=== PATIENT | female | born 1980 | race Caucasian/White ===

== ENCOUNTER 2024-06-07 20:23 | Emergency (ER) | payer BC, SELFPAY ==
--- NOTE | ~2024-06-07 | CT_ITS ---
CT of the Abdomen and Pelvis: Indication: Abdominal pain Technique: 2.5 mm axial scans were obtained through the abdomen and pelvis following intravenous adm inistration of 100 cc of Omnipaque 350. Dose reduction technique was used on this scan by utilizing a utomated exposure control and iterative reconstruction technique. The dose-length product (DLP) was 1 530.12 mGy-cm. Findings: Scans through the lung bases are unremarkable. There is diffuse hepatic steatosis. Cholecystectomy clips are present. The spleen, pancreas, adrenals and kidneys are within normal limits. No evidence of aortic aneurysm. No lymphadenopathy. No bowel obstruction or bowel wall thickening. There is no evidence to suggest acute appendicitis. Images through the pelvis were performed. Urinary bladder unremarkable. No pelvic mass seen. No ascit es. Impression: No acute abnormalities seen. Diffuse hepatic steatosis. Reviewed, dictated and finalized at [facility]. TY HUNTER Impression: No acute abnormalities seen. Diffuse hepatic steatosis.
[2024-06-07 20:26] VITALS: BP 145/86; PULSE 87; RESP 18; TEMP 36.7; O2SAT 100
--- NOTE | 2024-06-07 20:28 | PC.NURSE ---
pt ambulated to bathroom for urine specimen
--- NOTE | 2024-06-07 20:29 | ED_ITS ---
HPI - Abdominal Pain General Chief Complaint: Abdominal Pain Stated Complaint: abdominal pain Time Seen by Provider: 06/07/24 20:28 Source: patient Mode of arrival: ambulatory Limitations: no limitations History of Present Illness HPI narrative: Patient is a 43-year-old female with mid epigastric abdominal pain for the past 5 days. She has a full sensation in the stomach area. MD elicited complaint: abdominal pain Pertinent past history: other ( CHF?) Onset (ago): day(s) (5) Pain Consistency: constant Location: epigastric Severity: moderate Pain scale (0-10): 6 Quality: cramping and stabbing Radiation: none Migration to: no migration Exacerbating factors: movement Relieving factors: movement Context: confirms sick contacts Associated symptoms: nausea and anorexia Related Data Home Medications ?Medication ?Instructions ?Recorded ?Confirmed ?Last Taken ?Type furosemide 20 mg tablet 20 mg PO DAILY 06/07/24 06/07/24 Unknown History lisinopril 2.5 mg tablet 2.5 mg PO DAILY 06/07/24 06/07/24 Unknown History metoprolol succinate 25 mg 25 mg PO DAILY 06/07/24 06/07/24 Unknown History tablet,extended release 24 hr Allergies Allergy/AdvReac Type Severity Reaction Status Date / Time morphine Allergy Severe Chest Pain Verified 06/07/24 22:11 ibuprofen Allergy Intermediate Dizziness Verified 06/07/24 22:11 azithromycin (From Klarity-A Allergy Unknown Verified 06/07/24 22:11 (azithro-chondr)(PF)) chondroitin sulfate A (From Allergy Unknown Verified 06/07/24 22:11 Klarity-A (azithro-chondr)(PF)) Review of Systems 2 Review of Systems: All systems reviewed & are unremarkable except as noted in HPI and below Constitutional: Constitutional: Reports no additional constitutional complaints Eyes: Eyes: Reports no additional eye complaints ENT: Reports system reviewed and no additional complaints, except as documented Cardiovascular: Cardiovascular: Reports no additional cardiovascular complaints Respiratory: Respiratory: Reports no additional respiratory complaints Gastrointestinal: Gastrointestinal: Reports no additional gastrointestinal complaints Genitourinary: Genitourinary: Reports no additional female genitourinary complaints Musculoskeletal: Musculoskeletal: Reports no additional musculoskeletal complaints Integumentary/Breasts: Skin/Breast: Reports system reviewed and no additional complaints, except as docu Neurologic: Reports system reviewed and no additional complaints, except as documented Psychiatric: Psychiatric: Reports no additional psychiatric complaints Endocrine: Endocrine: Reports no additional endocrine complaints Hematologic/Lymphatic: Hematologic/Lymphatic: Reports no additional hematologic/lymphatic complaints Allergic/Immunologic: Allergic/Immunologic: Reports no additional allergic/immunologic complaints Exam 2 Const: General: healthy appearing Nutritional Appearance: well nourished Orientation/consciousness: patient oriented x3 HENMT: Head: normal to inspection Ears: external ears normal F valarie/Nose/Sinus: Normal external nose present Eyes: Conjunctivae: conjunctivae normal Pupils: Equal, round and reactive pupils present EOM: EOMs intact bilaterally Neck: Neck: normal visual inspection Chest: Chest palpation & inspection: normal inspection of the chest Resp: Effort & Inspection: normal respiratory effort and not labored A uscultation: clear to auscultation bilaterally and no crackles Cardio: Rate: regular rate Rhythm: regular rhythm Heart sounds: no murmurs GI: Inspection: non-distended GI Palp: Yes Soft to palpation, Yes Tenderness to palpation present (GI) ( Epigastric), Yes Guarding due to palpation present (GI), No Rigid due to palpation, No Hernia present, No Palpable mass present and No Rebound tenderness present Auscultation: normal bowel sounds Other: hysterectomy and cholecystectomy completed : General: Yes bladder normal to palpation Back/Spine/Pelvis: Back: no CVA tenderness Skin: General skin exam: normal color Rashes: no rashes Wounds: no wounds Neuro: General: patient oriented x3 Cranial nerves: Yes Nystagmus not present Speech: normal speech Extrem: General: normal to inspection Psych: Mental Status: mental status grossly normal Affect: normal affect Attitude: cooperative Course Vital Signs Vital signs: Vital Signs Temperature 36.7 C 06/07/24 20:26 Pulse Rate 87 06/07/24 20:26 Respiratory Rate 18 06/07/24 20:26 Blood Pressure 145/86 H 06/07/24 20:26 Pulse Oximetry 100 06/07/24 20:26 Oxygen Delivery Room Air 06/07/24 20:26 Temperature 36.2 C L 06/08/24 02:00 Pulse Rate 60 06/08/24 02:00 Respiratory Rate 18 06/08/24 02:00 Blood Pressure 133/79 06/08/24 02:00 Pulse Oximetry 100 06/08/24 02:00 Oxygen Delivery Room Air 06/08/24 02:00 MDM - Abdominal Pain MDM Narrative Medical decision making narrative: patient is a 43-year-old female with epigastric pain for the past 5 days. We will do GI workup at this time. We will give her GI cocktail trial. Lab Data Attestation: I reviewed the patient's lab results. 06/07/24 22:45 06/07/24 22:45 Labs: Lab Results 06/07/24 06/07/24 06/07/24 Range/Units 20:29 21:02 22:45 WBC 9.5 (4.8-10.8) K/mm3 RBC 4.97 (4.20-5.40) M/mm3 Hgb 15.5 H (12.0-15.0) g/dL Hct 47.9 (35.0-49.0) % MCV 96.4 (78.0-102.0) fL MCH 31.2 H (27.0-31.0) pg MCHC 32.4 (32-36) g/dL RDW 13.0 (11.6-14.4) % Plt Count 189 (150-420) K/mm3 MPV 11.0 (9.2-11.8) fl Immature Gran % (Auto) 0.5 H (0.0-0.0) % Neut % (Auto) 57.7 (50.0-70.0) % Lymph % (Auto) 30.3 (18.0-42.0) % [place] % (Auto) 9.6 (2.0-11.0) % Eos % (Auto) 1.4 (1.0-6.0) % Baso % (Auto) 0.5 (0.0-1.0) % Lymph # (Auto) 2.88 (1.10-4.50) K/mm3 [place] # (Auto) 0.91 H (0.10-0.90) K/mm3 Eos # (Auto) 0.13 (0.02-0.50) K/mm3 Baso # (Auto) 0.05 (0.00-0.10) K/mm3 Abs Immat Gran (auto) 0.05 H (0.00-0.00) K/mm3 Absolute Neuts (auto) 5.50 (1.70-7.20) K/mm3 Absolute Nucleated RBC 0.00 (0.00-0.00) K/mm3 Nucleated RBC % 0.0 (0-0.0) % PT 10.3 (9.50-12.1) Seconds INR 0.9 APTT 27.2 (23.9-30.70) Sec Sodium 140 (136-145) mmol/L Potassium 4.0 (3.5-5.1) mmol/L Chloride 102 (98-108) mmol/L Carbon Dioxide 30 (21-32) mmol/L Anion Gap 8 (4-12) mmol/L BUN 8 (7-18) mg/dL Creatinine 0.63 (0.55-1.02) mg/dL Estim Creat Clear Calc 139 ml/min Estimated GFR > 60 (59 - ) Glucose 78 (70-99) mg/dL Calculated Osmolality 287 (285-295) mOsm/kg Lactic Acid 0.8 (0.4-2.0) mmol/L Calcium 8.6 (8.5-10.1) mg/dL Total Bilirubin 0.4 (0.00-1.00) mg/dL AST 40 H (15-37) U/L ALT 80 H (14-59) U/L Alkaline Phosphatase 69 (46-116) U/L Total Protein 6.5 (6.4-8.2) g/dL Albumin 3.6 (3.4-5.0) g/dL Lipase 46 (16-77) U/L Urine Color Light yellow (Yellow) Urine Appearance Clear (Clear) Urine pH 6.0 (5.0-8.0) Ur Specific [place] 1.010 (1.010-1.020) Urine Protein Negative (Negative) Urine Glucose (UA) Negative (Negative) Urine Ketones Negative (Negative) Ur Blood (Man) Negative (Negative) Urine Nitrate Negative (Negative) Urine Bilirubin Negative (Negative) Urine Urobilinogen 0.2 (0.2-1.0) mg/dL Leukocyte Esterase Rfl Negative (Negative) SINDI/UL Influenza A (RT-PCR) Negative (Negative) Influenza B (RT-PCR) Negative (Negative) RSV (RT-PCR) Negative (Negative) SARS-CoV-2 RNA (RT-PCR) Negative (Negative) Imaging Data Attestation: I personally reviewed and interpreted this imaging study as follows: Radiologist's impression: CT scan of the abdomen and pelvis with contrast was negative by overnight read Discharge Plan Discharge Clinical Impression: Peptic gastritis Patient Disposition: Home, Self-Care Condition: Stable Instructions: Peptic Ulcer (ED) Additional Instructions: please follow-up with the primary doctor in the next week. Please see a GI specialist to consider an upper endoscopy to look at the stomach. Patient Language: Sami Prescriptions: New pantoprazole [Protonix] 40 mg tablet,delayed release (DR/EC) 40 mg PO DAILY 30 Days Qty: 30 0RF sucralfate [Carafate] 1 gram tablet 1 g PO TID PRN (Reason: pain) Qty: 30 0RF No Action furosemide 20 mg tablet 20 mg PO DAILY metoprolol succinate 25 mg tablet extended release 24 hr 25 mg PO DAILY lisinopril 2.5 mg tablet 2.5 mg PO DAILY Follow-up/Referrals: UNKNOWN,DOCTOR [Non-Staff] - Stand Alone Forms: Work/School Release IP Time of Disposition: 02:13
[2024-06-07 20:46] LABS: Add Urine Microscopic? NO; Appearance Urine Clear (Clear); Bilirubin Urine Negative (Negative); Blood Urine Negative (Negative); Color Urine Light Yellow (Yellow); Glucose Urine UA Negative (Negative); Ketones Urine Negative (Negative); Leukocyte Esterase Ur Negative LEU/UL (Negative); Nitrate Urine Negative (Negative); Protein Urine Negative (Negative); Urobilinogen Urine 0.2 mg/dL (0.2-1.0)
--- OUTSIDE RECORDS SUMMARY | 2024-06-07 21:01 | XMS_ITS | Clinical Summary ---
Author Organization [facility] Address [address] [place] [address] Care Team Providers Care Home Health Care Coordinator Name Role Phone Orlando Chawla MD Primary Care Provider [phone]- [phone] Allergies Active Allergy Reactions Criticality Noted Date Comments Erythromycin Unknown 06/24/2023 Ibuprofen Syncope High 06/24/2023 Morphine Anaphylaxis High 06/24/2023 Medications ondansetron ODT (ZOFRAN-ODT) 4 mg disintegrating tablet Take 1 tablet (4 mg total) by mouth every 8 (eight) hours as needed for nausea or vomiting 15 tablet 4 Active cyclobenzaprine (FLEXERIL) 10 mg tablet Take 1 tablet (10 mg total) by mouth 2 (two) times a day as needed for muscle spasms 20 tablet 4 Active Active Problems No known active problems Social History Tobacco Use Types Packs/Day Years Used Date Smoking Tobacco: Never Assessed Personal Safety Answer Date Recorded Have you ever been in or are you currently in a harmful physical or emotional relationship or is someone making you feel afraid or unsafe? 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 Gender Identity Not on file Sexual Orientation Not on file Obstetrics History Last Filed Vital Signs Vital Sign Reading Time Taken Comments Blood Pressure 103/76 02/24/2024 4:00 AM CDT Pulse 82 02/24/2024 4:00 AM CDT Temperature 36.8 ??C (98.3 ??F) 02/24/2024 2:20 AM CD T Respiratory Rate 20 02/24/2024 4:00 AM CDT Oxygen Saturation 96% 02/24/2024 4:00 AM CDT Inhaled Oxygen Concentration - - Weight 127 kg (280 lb) 11/20/2023 8:19 AM CDT Height - - Body Mass Index - - Plan of Treatment Health Maintenance Due Date Last Done Comments Breast Cancer Screening-Mammogram 1982 Depression Screening 1982 Hepatitis C Screening 1982 Varicella Vaccines (1 of 2 - 13+ 2-dose series) 12/18/1995 Hepatitis B Screening 2000 Regular Well Visit/Exam 18-64 2000 Influenza Vaccine (#1) 2024 DTaP/Tdap/Td Vaccine (3 - Td or Tdap) 01/18/2032 01/17/2022, 02/12/2013 HPV Vaccines Aged Out No longer eligi ble based on patient's age to complete this topic Pneumococcal vaccine <65 Aged Out No longer eligible based on patient's age to complete this topic Insurance [facility] [place] [id number] [facility] [place] [place] [id number] Care Teams Home Health Care Coordinator Relationship Specialty Start Date End Date Orlando Chawla MD [address] [place] [address] PCP - General Family Medicine 06/24/23
--- OUTSIDE RECORDS SUMMARY | 2024-06-07 21:01 | XMS_ITS | Referral Summary ---
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
--- OUTSIDE RECORDS SUMMARY | 2024-06-07 21:01 | XMS_ITS | Patient Health Summary ---
Author Organization [facility] Address [address] [place] [address] Care Team Providers Care Executive Pilot Name Role Phone Orlando Chawla MD Primary Care Provider +1- [phone] Note from Formerly named [facility],non-owned Affiliates and Associated Physician Practices is amultiple site organization consisting of ambulatory clinics and hospital sitesin [place], [place], [place] and [place]. This disclosure is being madepursuant to the Care Everywhere program and may not contain all information available regarding this patient. Last updated 18.[facility] Allergies * Ibuprofen(Dizziness) * Morphine(Anaphylaxis) -High Criticality Medications * Be aware that medications may not be up to date on this document. Alwaysverify current medications with the patient. * oxyCODONE-acetaminophen (Percocet) 5-325 MG tablet(Started 06/23/2023) Take 1 (one) tablet by mouth every 6 hours as needed for Pain Social History Tobacco Use Types Packs/Day Years Used Date Smoking Tobacco: Every Day Cigarettes Smokeless Tobacco: Never Tobacco Cessation:Ready to Q uit: Not Asked; Counseling Given: Not Answered Sex and Gender Information Value Date Recorded Sex Assigned at Not on file Gender Identity Not on file Sexual Orientation Not on file Last Filed Vital Signs Vital Sign Reading Time Taken Comments Blood Pressure 132/86 06/23/2023 9:40 AM SUPPORT SERVICES MANAGER Pulse 74 06/23/2023 9:40 AM SUPPORT SERVICES MANAGER Temperature 36.8 ??C (98.2 ??F) 06/23/2023 9:40 AM CS T Respiratory Rate 18 06/23/2023 9:40 AM SUPPORT SERVICES MANAGER Oxygen Saturation 98% 06/23/2023 9:40 AM SUPPORT SERVICES MANAGER Inhaled Oxygen Concentration - - Weight 122.5 kg (270 lb) 06/23/2023 5:25 AM SUPPORT SERVICES MANAGER Height 167.6 cm (5' 6 ) 06/23/2023 5:25 AM SUPPORT SERVICES MANAGER Body Mass Index 43.58 06/23/2023 5:25 AM SUPPORT SERVICES MANAGER Procedures * CARDIAC EKG ORDER(Performed 06/25/2023) * CT ABDOMEN PELVIS W CONTRAST(Performed 06/23/2023) Performed for Abdominal pain, generalized * CT HEAD WO CONTRAST(Performed 06/23/2023) Performed for Dizziness * HCG URINE QUAL POCT NOTIFICATION(Performed 06/23/2023) * LIPASE BLOOD(Performed 06/23/2023) * TROPONIN-I HIGH SENSITIVE(Performed 06/23/2023) * COMPREHENSIVE METABOLIC PANEL(Performed 06/23/2023) * CBC W AUTO DIFFERENTIAL(Performed 06/23/2023) * EKG 12-LEAD(Performed 06/23/2023) Performed for Abdominal pain, generalized Results * CARDIAC EKG ORDER (06/25/2023 2:06 AM SUPPORT SERVICES MANAGER) Narrative 06/25/2023 2:06 AM SUPPORT SERVICES MANAGER Ordered by an unspecified provider. Scanned Document CARDIAC SERVICES ORD ERABLES * CT ABDOMEN AND PELVIS WITH IV CONTRAST (06/23/2023 8:29 AM SUPPORT SERVICES MANAGER) Anatomical Region Laterality Modality Abdomen, Pelvis Computed Tomogra phy 06/23/2023 8:33 AM SUPPORT SERVICES MANAGER Impressions 06/23/2023 8:40 AM SUPPORT SERVICES MANAGER IMPRESSION: No acute abnormality identified in the abdomen or pelvis. > Interpreting Provider: Jesusita Gibbons MD on 06/23/2023 8:40 AM Narrative 06/23/2023 8:40 AM SUPPORT SERVICES MANAGER PROCEDURE: ??CT ABDOMEN PELVIS W CONTRAST DATE/TIME OF EXAM: ??06/23/2023 8:29 AM CLINICAL INFORMATION: None relevant/not provided if blank. Indication: R10.84: Generalized abdominal pain Additional History: COMPARISON: None. TECHNIQUE: CT of the abdomen and pelvis was performed following intravenous contrast utilizing standard protocol. CT dose reduction technique was used, including Automated Exposure Control. CONTRAST: ?? IOPAMIDOL 76 % IV SOLN:80 mL FINDINGS: There is diffuse hepatic steatosis. No definite focal hepatic lesion identified. No intrahepatic ductal dilatation seen. Normal enhancement of the portal vein without filling defect. Status post cholecystectomy. Prominent common bile duct, maximum luminal caliber measure about 1 cm. Unremarkable pancreas and adrenal glands. Unremarkable spleen and both kidneys. No focal renal parenchymal lesion seen. No hydronephrosis seen. Minimal atherosclerotic calcification of the abdominal aorta and its branches. No retroperitoneal lymphadenopathy identified. No pelvic or inguinal lymphadenopathy is seen. No ascites or free air seen. Unremarkable gastroesophageal junction. No bowel obstruction seen. Normal appendix is visualized. Multiloculated right ovarian cyst measure 1.9 x 4.0 cm. Unremarkable left ovary. Status post hysterectomy. Lung bases are clear. Minimal degenerative changes of the spine. Procedure Note Jesusita Gibbons MD - 06/23/2023 PROCEDURE: CT ABDOMEN PELVIS W CONTRAST DATE/TIME OF EXAM: 06/23/2023 8:29 AM CLINICAL INFORMATION: None relevant/not provided if blank. Indication: R10.84: Generalized abdominal pain Additional History: COMPARISON: None. TECHNIQUE: CT of the abdomen and pelvis was performed following intravenouscontrast utilizing standard protocol. CT dose reduction technique was used, including Automated ExposureControl. CONTRAST: IOPAMIDOL 76 % IV SOLN:80 mL FINDINGS: There is diffuse hepatic steatosis. No definite focal hepatic lesion identified. No intrahepatic ductal dilatation seen. Normal enhancementof the portal vein without filling defect. Status post cholecystectomy. Prominent common bile duct, maximum luminal caliber measure about 1 cm. Unremarkable pancreas and adrenal glands. Unremarkable spleen and both kidneys. No focal renal parenchymal lesion seen. No hydronephrosis seen. Minimal atherosclerotic calcification of the abdominal aorta and its branches. No retroperitoneal lymphadenopathy identified. No pelvic or inguinal lymphadenopathy is seen. No ascites or free air seen.Unremarkable gastroesophageal junction. No bowel obstruction seen. Normal appendix is visualized. Multiloculated right ovarian cyst measure 1.9 x 4.0 cm. Unremarkable left ovary. Status post hysterectomy. Lung bases are clear. Minimal degenerative changes of the spine. IMPRESSION: No acute abnormality identified in the abdomen or pelvis. > Interpreting Provider: Jesusita Gibbosn MD on 06/23/2023 8:40 AM Kevin Cordero MD CT ORDERABLES * CT HEAD WO CONTRAST (06/23/2023 8:28 AM SUPPORT SERVICES MANAGER) Anatomical Region Laterality Modality Head Computed Tomogra phy 06/23/2023 8:30 AM SUPPORT SERVICES MANAGER Impressions 06/23/2023 8:33 AM SUPPORT SERVICES MANAGER IMPRESSION: No intracranial hemorrhage or other acute abnormality by CT. > Interpreting Provider: Jesusita Gibbons MD on 06/23/2023 8:33 AM Narrative 06/23/2023 8:33 AM SUPPORT SERVICES MANAGER PROCEDURE: ??CT HEAD WO CONTRAST DATE/TIME OF EXAM: ??06/23/2023 8:28 AM CLINICAL INFORMATION: None relevant/not provided if blank. Indication: R42: Dizziness and giddiness Additional History: COMPARISON: None. TECHNIQUE: Noncontrast CT brain was performed utilizing standard protocol. CT dose reduction technique was used, including Automated Exposure Control. FINDINGS: The ventricular system is within normal limits. ??There is no evidence of midline shift, focal area of abnormal attenuation, acute intracranial hemorrhage. ??The mastoid air cells and paranasal sinuses are unremarkable. The orbits are grossly unremarkable. Procedure Note Jesusita Gibbons MD - 06/23/2023 PROCEDURE: CT HEAD WO CONTRAST DATE/TIME OF EXAM: 06/23/2023 8:28 AM CLINICAL INFORMATION: None relevant/not provided if blank. Indication: R42: Dizziness and giddiness Additional History: COMPARISON: None. TECHNIQUE: Noncontrast CT brain was performed utilizing standard protocol. CT dose reduction technique was used, including Automated ExposureControl. FINDINGS: The ventricular system is within normal limits. There is no evidence of midline shift, focal area of abnormal attenuation, acute intracranial hemorrhage. The mastoid air cells and paranasal sinuses areunremarkable. The orbits are grossly unremarkable. IMPRESSION: No intracranial hemorrhage or other acute abnormality by CT. > Interpreting Provider: Jesusita Gibbons MD on 06/23/2023 8:33 AM Kevin Cordero MD CT ORDERABLES * HCG URINE QUAL POCT NOTIFICATION (06/23/2023 7:31 AM SUPPORT SERVICES MANAGER) Comment Notification Label Only - See Separate Report 06/23/2023 7:31 AM SUPPORT SERVICES MANAGER [facility] Urine URINE / Unknown 6:05 AM SUPPORT SERVICES MANAGER Juan Jose Fish MD LAB - URINALYSIS ORD ERABLES [facility] [address] [place] [address] * TROPONIN-I HIGH SENSITIVE (06/23/2023 6:17 AM SUPPORT SERVICES MANAGER) [facility] Troponin I High Sensitive <3 <=14 ng/L 06/23/2023 6:44 AM [facility] Blood BLOOD SPECIMEN / Unknown Venipuncture / Unknown 06/23/2023 6:17 AM SUPPORT SERVICES MANAGER 06/23/2023 6:20 AM SUPPORT SERVICES MANAGER Juan Jose Fish MD LAB - CHEMISTRY ARTEMIO FITCH Performing Organization Address [facility] Co de Phone Number [facility] [address] [place] [address] * (ABNORMAL) CBC W AUTO DIFFERENTIAL (06/23/2023 6:17 AM SUPPORT SERVICES MANAGER) [facility] WBC 14.3(H) 4.0 - 10.7 x10E9/L 06/23/2023 6:26 AM [facility] RBC Count 5.03 3.90 - 5.20 x10E12/L 06/23/2023 6:26 AM [facility] Hemoglobin 15.9(H) 11.9 - 15.8 g/dL 06/23/2023 6:26 AM [facility] Hematocrit 47.9(H) 34.8 - 46.1 % 06/23/2023 6:26 AM [facility] MCV 95.2 80.0 - 98.0 fL 06/23/2023 6:26 AM [facility] MCH 31.6 26.7 - 33.6 pg 06/23/2023 6:26 AM [facility] MCHC 33.2 31.7 - 36.3 g/dL 06/23/2023 6:26 AM [facility] RDW-CV 13.0 11.3 - 14.8 % 06/23/2023 6:26 AM [facility] Platelet Count 205 150 - 420 x10E9/L 06/23/2023 6:26 AM [facility] MPV 11.1 7.8 - 11.4 fL 06/23/2023 6:26 AM SUPPORT SERVICES MANAGER [facility] Neutrophil % 65.8 41.0 - 74.0 % 06/23/2023 6:26 AM [facility] Lymphocyte % 27.2 17.0 - 47.0 % 06/23/2023 6:26 AM [facility] Monocyte % 5.4 3.0 - 11.0 % 06/23/2023 6:26 AM [facility] Eosinophil % 1.0 0.0 - 7.0 % 06/23/2023 6:26 AM [facility] Basophil % 0.3 0.0 - 1.6 % 06/23/2023 6:26 AM [facility] Immature Granulocytes % 0.3 0.0 - 1.0 % 06/23/2023 6:26 AM [facility] Neutrophil Absolute 9.44(H) 1.60 - 7.50 x10E9/L 06/23/2023 6:26 AM [facility] Lymphocyte Absolute 3.90 1.00 - 4.40 x10E9/L 06/23/2023 6:26 AM [facility] Monocyte Absolute 0.78 0.15 - 1.00 x10E9/L 06/23/2023 6:26 AM [facility] Eosinophil Absolute 0.14 0.00 - 0.60 x10E9/L 06/23/2023 6:26 AM [facility] Basophil Absolute 0.04 0.00 - 0.13 x10E9/L 06/23/2023 6:26 AM [facility] Blood BLOOD SPECIMEN / Unknown Venipuncture / Unknown 06/23/2023 6:17 AM [facility] 06/23/2023 6:20 AM [facility] Juan Jose Fish MD LAB - HEMATOLOGY ORD ERABLES [facility] [address] [place] [address] * (ABNORMAL) COMPREHENSIVE METABOLIC PANEL (06/23/2023 6:17 AM [facility]) [facility] Glucose 106(H) 70 - 105 mg/dL 06/23/2023 6:39 AM [facility] Sodium 142 136 - 145 mmol/L 06/23/2023 6:39 AM [facility] Potassium 4.2 3.5 - 5.1 mmol/L 06/23/2023 6:39 AM [facility] Chloride 108(H) 98 - 107 mmol/L 06/23/2023 6:39 AM [facility] CO2 24 22 - 29 mmol/L 06/23/2023 6:39 AM [facility] Calcium 9.1 8.4 - 10.4 mg/dL 06/23/2023 6:39 AM [facility] Anion Gap 10 6 - 16 mmol/L 06/23/2023 6:39 AM [facility] BUN 8 5.3 - 18.7 mg/dL 06/23/2023 6:39 AM [facility] Creatinine 0.73 0.57 - 1.11 mg/dL 06/23/2023 6:39 AM [facility] Alkaline Phosphatase 59 40 - 150 U/L 06/23/2023 6:39 AM [facility] ALT 35 0 - 55 U/L 06/23/2023 6:39 AM [facility] AST 21 5 - 34 U/L 06/23/2023 6:39 AM [facility] Protein Total 7.0 6.4 - 8.3 gm/dL 06/23/2023 6:39 AM [facility] Albumin 4.0 3.4 - 5.0 gm/dL 06/23/2023 6:39 AM [facility] Bilirubin Total 0.3 0.2 - 1.2 mg/dL 06/23/2023 6:39 AM [facility] eGFR by CKD-EPI >90 >=90 mL/min/1.7 3 m2 06/23/2023 6:39 AM [facility] Blood BLOOD SPECIMEN / Unknown Venipuncture / Unknown 06/23/2023 6:17 AM [facility] 06/23/2023 6:20 AM [facility] Juan Jose Fish MD LAB - CHEMISTRY ARTEMIO FITCH [facility] [address] [place] [address] * LIPASE BLOOD (06/23/2023 6:17 AM [facility]) Lipase 24 <60 U/L 06/23/2023 6:39 AM SUPPORT SERVICES MANAGER [facility] Blood BLOOD SPECIMEN / Unknown Venipuncture / Unknown 06/23/2023 6:17 AM SUPPORT SERVICES MANAGER 06/23/2023 6:20 AM SUPPORT SERVICES MANAGER Juan Jose Fish MD LAB - CHEMISTRY [facility] [address] [place] [address] * EKG 12-LEAD (06/23/2023 5:37 AM SUPPORT SERVICES MANAGER) Ventricular Rate 82 BPM [facility] Atrial Rate 82 BPM [facility] P-R Interval 182 ms [facility] QRS Duration ms 86 ms [facility] Q-T Interval ms 398 ms [facility] QTC Calculation (Bezet) 464 ms [facility] Calculated P [place] 21 degrees [facility] Calculated R [place] 18 degrees [facility] Calculated T [place] -2 degrees [facility] Interpretation EKG Normal sinus rhythm No previous ECGs available Confirmed by TORRES NAVARRO, JESSICA VAZQUEZ ([id number]) on 06/24/2023 7:34:38 AM [facility] 06/23/2023 5:37 AM SUPPORT SERVICES MANAGER 06/24/2023 7:34 AM SUPPORT SERVICES MANAGER Juan Jose Fish MD ECG ORDERABLES [facility] Care Teams Executive Pilot Relationship Specialty Start Date End Date Orlando Chawla MD [address] [place] [address] PCP - General Family Medicine 06/23/23
--- OUTSIDE RECORDS SUMMARY | 2024-06-07 21:01 | XMS_ITS | Referral Summary ---
Author Organization [facility] Address [address] [place] [address] Care Team Providers Care Operator Automated Process Name Role Phone Orlando Chawla MD Primary Care Provider +1- [phone] Source Comments [facility],non-owned Affiliates and Associated Physician Practices is amultiple site organization consisting of ambulatory clinics and hospital sitesin [place], [place], [place] and [place]. This disclosure is being madepursuant to the Care Everywhere program and may not contain all information available regarding this patient. Last updated 18.[facility] Allergies Active Allergy Reactions Criticality Noted Date Comments Ibuprofen Dizziness 06/23/2023 Morphine Anaphylaxis High 06/23/2023 Medications * Be aware that medications may not be up to date on this document. Alwaysverify current medications with the patient. Medication Sig Dispensed Refills Start Date End Date Status oxyCODONE-acetaminoph en (Percocet) 5-325 MG tabletIndications:Rib pain Take 1 (one) tablet by mouth every 6 hours as needed for Pain 20 tablet 06/23/2023 Active Social History Tobacco Use Types Packs/Day Years [...] Comments Blood Pressure 132/86 06/23/2023 9:40 AM FABRIC DESIGNER Pulse 74 06/23/2023 9:40 AM FABRIC DESIGNER Temperature 36.8 ??C (98.2 ??F) 06/23/2023 9:40 AM CS T Respiratory Rate 18 06/23/2023 9:40 AM FABRIC DESIGNER Oxygen Saturation 98% 06/23/2023 9:40 AM FABRIC DESIGNER Inhaled Oxygen Concentration - - Weight 122.5 kg (270 lb) 06/23/2023 5:25 AM FABRIC DESIGNER Height 167.6 cm (5' 6 ) 06/23/2023 5:25 AM FABRIC DESIGNER Body Mass Index 43.58 06/23/2023 5:25 AM FABRIC DESIGNER Plan of Treatment Not on file Care Teams Operator Automated Process Relationship Specialty Start Date End Date Orlando Chawla MD [address] [place] [address] PCP - General Family Medicine 06/23/23
--- OUTSIDE RECORDS SUMMARY | 2024-06-07 21:01 | XMS_ITS | Clinical Summary ---
Author Organization [facility] Address [address] [place] [address] Care Team Providers Care Floor Specialist Name Role Phone Orlando Chawla MD Primary Care Provider +1- [phone] Source Comments [facility],non-owned Affiliates and Associated Physician Practices is amultiple site organization consisting of ambulatory clinics and hospital sitesin [place], [place], [place] and [place]. This disclosure is being madepursuant to the Care Everywhere program and may not contain all information available regarding this patient. Last updated 18.[facility] Allergies Active Allergy Reactions Criticality Noted Date [...] Comments Blood Pressure 132/86 06/23/2023 9:40 AM DENTAL HYGIENE TEACHER Pulse 74 06/23/2023 9:40 AM DENTAL HYGIENE TEACHER Temperature 36.8 ??C (98.2 ??F) 06/23/2023 9:40 AM CS T Respiratory Rate 18 06/23/2023 9:40 AM DENTAL HYGIENE TEACHER Oxygen Saturation 98% 06/23/2023 9:40 AM DENTAL HYGIENE TEACHER Inhaled Oxygen Concentration - - Weight 122.5 kg (270 lb) 06/23/2023 5:25 AM DENTAL HYGIENE TEACHER Height 167.6 cm (5' 6 ) 06/23/2023 5:25 AM DENTAL HYGIENE TEACHER Body Mass Index 43.58 06/23/2023 5:25 AM DENTAL HYGIENE TEACHER Plan of Treatment Health Maintenance Due Date Last Done Comments LIPID TESTING 1982 MAMMOGRAM 1982 PAP SMEAR 1982 HIV SCREENING 1997 HEPATITIS C SCREENING 12/12/2000 DTAP/TDAP/TD VACCINES (1 - Tdap) 2001 HEPATITIS B VACCINE (1 of 3 - 19+ 3-dose series) 2001 PNEUMOCOCCAL VACCINE (1 of 2 - PCV) 2001 COVID-19 VACCINE (1 - 2023-2 5 season) 2024 INFLUENZA VACCINE (#1) 2024 DEPRESSION SCREENING 05/06/2024 ZOSTER VACCINE (1 of 2) 2032 HIB VACCINE Aged Out No longer eligi ble based on patient's age to complete this topic HPV VACCINE Aged Out No longer eligi ble based on patient's age to complete this topic MENINGOCOCCAL (Group B) VACCINE Aged Out No longer eligible based on patient's age to complete this topic MENINGOCOCCAL VACCINE Aged Out No anne sergio eligible based on patient's age to complete this topic Care Teams Floor Specialist Relationship Specialty Start Date End Date Orlando Chawla MD [address] [place] [address] PCP - General Family Medicine 06/23/23
[2024-06-07 21:53] LABS: Influenza A QL RT-PCR Negative (Negative); Influenza B QL RT-PCR Negative (Negative); RSV RNA, RT-PCR Negative (Negative); SARS-CoV-2 RNA PCR Negative (Negative)
[2024-06-07] MEDS: MAG HYDROX/ALUMINUM HYD/SIMETH 30 ML, PHENobarb/HYOSCY/ATROPINE/SCOP 32.4 MG, LIDOCAINE... PO (22:44)
[2024-06-07 22:58] LABS: Basophils Absolute Auto 0.05 K/mm3 (0.00-0.10); Basophils Percent Auto 0.5 % (0.0-1.0); Eosinophils Absolute Auto 0.13 K/mm3 (0.02-0.50); Eosinophils Percent Auto 1.4 % (1.0-6.0); Hematocrit 47.9 % (35.0-49.0); Hemoglobin 15.5 g/dL (12.0-15.0); Immature Granulocyte Absolute 0.05 K/mm3 (0.00-0.00); Immature Granulocyte Percent A 0.5 % (0.0-0.0); Lymphocytes Absolute Auto 2.88 K/mm3 (1.10-4.50); Lymphocytes Percent Auto 30.3 % (18.0-42.0); Mean Corpuscular HGB Conc 32.4 g/dL (32-36); Mean Corpuscular Hemoglobin 31.2 pg (27.0-31.0); Mean Corpuscular Volume 96.4 fL (78.0-102.0); Monocytes Absolute Auto 0.91 K/mm3 (0.10-0.90); Monocytes Percent Auto 9.6 % (2.0-11.0); Neutrophils Percent Auto 57.7 % (50.0-70.0); Platelet Count Result 189 K/mm3 (150-420); Red Blood Count 4.97 M/mm3 (4.20-5.40); White Blood Count 9.5 K/mm3 (4.8-10.8)
[2024-06-07 23:12] LABS: INR 0.9; Partial Thromboplastin Time 27.2 Sec (23.9-30.70); Prothrombin Time 10.3 Seconds (9.50-12.1)
[2024-06-07 23:21] LABS: Alanine Aminotransferase 80 U/L (14-59); Albumin Level 3.6 g/dL (3.4-5.0); Alkaline Phosphatase 69 U/L (46-116); Anion Gap 8 mmol/L (4-12); Aspartate Amino Transferase 40 U/L (15-37); Bilirubin,Total 0.4 mg/dL (0.00-1.00); Blood Urea Nitrogen 8 mg/dL (7-18); Calcium 8.6 mg/dL (8.5-10.1); Carbon Dioxide 30 mmol/L (21-32); Chloride 102 mmol/L (98-108); Estimated CRCL calculation 139 ml/min; Estimated Glomerular Filt Rate > 60; Glucose 78 mg/dL (70-99); Lipase 46 U/L (16-77); Osmolality Calculated 287 mOsm/kg (285-295); Sodium 140 mmol/L (136-145); Total Protein 6.5 g/dL (6.4-8.2)
[2024-06-07 23:23] LABS: Lactic Acid Reflex 0.8 mmol/L (0.4-2.0)
[2024-06-08 02:00] VITALS: BP 133/79; PULSE 60; RESP 18; TEMP 36.2; O2SAT 100
--- NOTE | 2024-06-08 02:01 | PC.NURSE ---
ERP aware of pt's vitals. No new orders.
[2024-06-08] MEDS: PANTOPRAZOLE 40 MG TABLET PO (02:17)
== END 2024-06-08 02:41 | disposition home or self-care (01) ==
PROVIDERS: Emergency Provider Emergency Medicine
DX: K29.60 Other gastritis without bleeding (principal); Z79.899 Other long term (current) drug therapy; Z20.822 Contact with and (suspected) exposure to COVID-19
CPT/HCPCS: 36415; 74177; 80053; 81003; 83605; 83690; 85025; 85610; 85730; 87637; 99284; A9270; Q9967